=== PATIENT | female | born 1955 | race Caucasian/White ===

== ENCOUNTER 2017-05-12 09:14 | Emergency (ER) | payer BC ==
[2017-05-12 11:36] VITALS: BP 138/79
--- NOTE | 2017-05-12 12:37 | UC ---
Jen Wisdom Edward, scribed for Elizabeth Velasco DO on 05/12/17 at 1004 . Skin Complaint HPI - HPI Summary HPI Summary: 61 y/o female presents to [facility] c/o rash spreading over her neck and face. The rash started two nights ago after work and has since spread over the L side of her face over her eyebrow and up the L side of her head. The rash is severely pruritic, which is slightly alleviated by cortisol and benadryl. Associated sx: L ear feels full and is slightly pruritic, chronic intermittent ear drainage, joint pain in the right thumb, chronic joint pain. Denies dizziness, confusion, swelling of the lip, N/V, ABD pain, CP, dysuria, VILLARREAL, and SOB. PMHx Type II DM, HLD and arthritis. SHx hysterectomy, gall bladder removal, appy, and retinal detachment repair. FHx mother AFIB, possible DM on grandfather's side. Non- smoker. - History of Current Complaint Chief Complaint: UCSkin Time Seen by Provider: 05/12/17 09:59 Stated Complaint: RASH Hx Obtained From: Patient Hx Last Menstrual Period: menapause Onset/Duration: Gradual Onset, Lasting Days - Started two nights ago, Still Present, Worse Since - today rash approaches the left eye Timing: Constant Onset Severity: Mild Current Severity: Moderate Location: Face - L, Other - L side of neck Character: Pruritus, Redness, Raised Aggravating: Humidity Alleviating: OTC Meds, OTC Creams/Salves Associated Signs & Symptoms: Positive: Negative - No dizziness, confusion, swelling of the lip, N/V, ABD pain, CP, dysuria, VILLARREAL, and SOB, Rash - Red over L side of face and neck; pruritic Related History: Possible Reaction to: Environmental Exposure - Allergy/Home Medications Allergies/Adverse Reactions: Allergies Allergy/AdvReac Type Severity Reaction Status Date / Time Tyropanoate [From Bilopaque] Allergy Severe Rash Verified 09/23/12 18:26 SODIUM PENTATHOL Allergy Severe GI Upset Uncoded 09/23/12 18:26 Review of Systems Constitutional: Negative Skin: Rash - Red rash over L side of face and neck; pruritic Eyes: Negative ENT: Other - L ear feels full and is slightly pruritic Respiratory: Negative Cardiovascular: Negative Gastrointestinal: Negative Genitourinary: Negative Motor: Negative Neurovascular: Negative Musculoskeletal: Arthralgia - Chronic joint pain. Joint pain in right thumb Neurological: Negative Psychological: Negative All Other Systems Reviewed And Are Negative: Yes PMH/Surg Hx/FS Hx/Imm Hx - Additional Past Medical History Additional PMH: Positive for arthritis. Negative for Cardiac Disease, HTN, COPD, thyroid disease , asthma, ulcers Previously Healthy: No Endocrine History: Diabetes - Type 2 Other Endocrine History: HLD - Surgical History Surgical History: Yes Surgery Procedure, Year, and Place: 1983 - DETACHED RETINA RIGHT EYE. 1985 - LUMP REMOVED LEFT GROIN. 1987 - COMPLETE HYSTERECTOMY. 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 2013 gall bladder - Family History Known Family History: Positive: Diabetes - Possible DM on grandfather's side Negative: Cardiac Disease, Hypertension, Other - joint laxity - Social History Occupation: Employed Full-time Lives: With Family Alcohol Use: Rare Substance Use Type: None Smoking Status (MU): Never Smoked Tobacco - Immunization History Most Recent Influenza Vaccination: not utd Most Recent Tetanus Shot: 11/2011 Most Recent Pneumonia Vaccination: none Physical Exam Triage Information Reviewed: Yes Appearance: Well-Appearing, No Pain Distress, Well-Nourished Vital Signs: Initial Vital Signs Temp 97.6 F 05/12/17 09:16 Pulse 87 05/12/17 09:16 Resp 17 05/12/17 09:16 BP 149/84 05/12/17 09:16 Pulse Ox 100 05/12/17 09:16 Vital Signs Reviewed: Yes Eyes: Positive: Conjunctiva Clear. Negative: Discharge ENT: Positive: Hearing grossly normal. Negative: Muffled/hoarse voice Neck exam: Normal Neck: Positive: Supple Respiratory: Positive: Lungs clear, Normal breath sounds, No respiratory distress, No accessory muscle use Cardiovascular: Positive: RRR, No Murmur Musculoskeletal Exam: Normal Neurological: Positive: Alert, Muscle Tone Normal Psychological Exam: Normal Psychological: Positive: Age Appropriate Behavior Skin: Positive: rashes - Pruritic raised erythematous macular bilateral rash with a streaking pattern on the face. Course/Dx - Course Course Of Treatment: High BP noted. - Differential Diagnoses - Skin Complaint Differential Diagnoses: Allergic Reaction, Cellulitis, Contact Dermatitis, Poison Jarrod, Poison [place] - Diagnoses Provider Diagnoses: poison jarrod Discharge - Discharge Plan Condition: Stable Disposition: HOME Prescriptions: predniSONE TAB* [Deltasone TAB*] 40 mg PO DAILY #10 tab Patient Education Materials: Poison Jarrod (ED), Cold Compress or Soak (ED) Referrals: Christopher Melgar MD [Primary Care Provider] - 5 Days Additional Instructions: PLEASE CHECK WITH YOUR PCP REGARDING HIGH BLOOD PRESSURE. CORTICOSTEROID MEDICATION: You have been given a medicine of the cortisone class. This medication is used to control inflammation or allergy. It is usually only given for a short period of time, until the acute process subsides. There are usually no side effects from short-term use of cortisone-like medications. Some persons feel an increased sense of well-being and are not sleepy at bedtime. Long-term use of cortisone medications is best avoided, unless required for a severe condition. If your condition does not remit, or relapses after the course of corticosteroid medication, you should consult your physician. Contact the physician if you develop lightheadedness, black or tarry stools , swelling of the legs, or significant rapid change in weight. BE AWARE, THIS MED WILL INCREASE YOUR BLOOD SUGAR TEMPORARILY. SO, WE WILL TRY TO TREAT THIS WITH A 5 DAY COURSE ONLY. UNFORTUNATELY, SOMETIMES, POISON JARROD RASHES WILL REBOUND. IF SO, YOU MAY REQUIRE A LONGER COURSE WITH A TAPER. PLEASE BE SEEN BY YOU PCP IN 5-7 DAYS TO SEE IF THAT WILL BE NECESSARY. The documentation as recorded by the Jen hough Edward accurately reflects the service I personally performed and the decisions made by me, Elizabeth Velasco DO.
== END 2017-05-12 11:36 | disposition home or self-care (01) ==
LOC: UCEAST 09:14
DX: L23.7 Allergic contact dermatitis due to plants, except food (principal); T63.791A Toxic effect of contact with other venomous plant, accidental (unintentional), initial encounter; Y92.9 Unspecified place or not applicable
CPT/HCPCS: 99212; G0463

== ENCOUNTER 2019-12-30 17:16 | Emergency (ER) | payer BC ==
--- NOTE | 2019-12-30 19:52 | UC ---
Throat Pain/Nasal Kyler HPI - HPI Summary HPI Summary: 64-year-old female presents with 2 unrelated complaints. Her primary complaint is three-day history of sore throat, swollen lymph nodes, mild left maxillary sinus pressure, and left ear pain. States she thought she saw a "blister" on her left tonsil. Denies fever, chills, dysphagia, cough, chest pain, shortness of breath, abdominal pain, nausea, or vomiting. Patient's secondary complaint is for a "lump" to her left wrist that has been present for approximately a week and a half. States is mildly tender and notes she has some pain when she attempts to lift anything with that hand. Denies injury, decreased range of motion, erythema, ecchymosis, numbness, or tingling. - History of Current Complaint Chief Complaint: UCRespiratory Stated Complaint: THROAT/EAR PAIN & LEFT WRIST PAIN Hx Obtained From: Patient Hx Last Menstrual Period: menapause Pain Intensity: 7 - Allergies/Home Medications Allergies/Adverse Reactions: Allergies Allergy/AdvReac Type Severity Reaction Status Date / Time MS Tyropanoate Allergy Severe Rash Verified 12/30/19 17:40 [From Bilopaque] SODIUM PENTATHOL Allergy Severe GI Upset Uncoded 09/23/12 18:26 Home Medications: Home Medications Calcium Carbonate [Calcium 600] 600 mg PO DAILY 09/23/12 [History Confirmed ] Ibuprofen TAB* [Advil TAB*] 400 mg PO Q6HR 09/23/12 [History Confirmed 12/30/19] Lisinopril TAB* [Prinivil TAB 5 MG*] 5 mg PO DAILY 09/23/12 [History Confirmed 12/30/19] Omeprazole CAP (NF) [Prilosec CAP* 20 MG] 20 mg PO DAILY 09/23/12 [History Confirmed 12/30/19] metFORMIN* [Glucophage 500 MG TAB *] 1,000 mg PO BID 09/23/12 [History Confirmed 12/30/19] zzInsulin GLARGINE(*) [Lantus(*)] 40 units SUBCUT BID 09/23/12 [History Confirmed 12/30/19] Atorvastatin* [Lipitor*] 40 mg PO 1700 12/23/14 [History Confirmed 12/30/19] Biotin 1,000 mcg PO DAILY 12/23/14 [History Confirmed 12/30/19] Cetirizine* [ZyrTEC 10 MG TAB*] 10 mg PO DAILY 12/30/19 [History Confirmed 12/30] Dulaglutide (NF) [Trulicity (NF)] 0.5 ml INJ WEEKLY 12/30/19 [History Confirmed 12/30/19] Insulin LISPRO* [HumaLOG 100 units/ml 3 ml VIAL *] 1 unit INJ TID 12/30/19 [ History Confirmed 12/30/19] Mecobalamin [B12 Active] 1,000 mcg PO DAILY 12/30/19 [History Confirmed 12/30/19 ] PMH/Surg Hx/FS Hx/Imm Hx Endocrine History: Diabetes, Dyslipidemia Cardiovascular History: Hypertension GI/ History: Gastroesophageal Reflux - Surgical History Surgical History: Yes Surgery Procedure, Year, and Place: 1983 - DETACHED RETINA RIGHT EYE. 1985 - LUMP REMOVED LEFT GROIN. 1987 - COMPLETE HYSTERECTOMY. 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 2013 gall bladder - Family History Known Family History: Positive: Diabetes - Possible DM on grandfather's side Negative: Cardiac Disease, Hypertension - Social History Occupation: Employed Full-time Lives: Alone Alcohol Use: Rare Substance Use Type: None Smoking Status (MU): Never Smoked Tobacco - Immunization History Most Recent Influenza Vaccination: not utd Most Recent Tetanus Shot: 11/2011 Most Recent Pneumonia Vaccination: none Review of Systems All Other Systems Reviewed And Are Negative: Yes Constitutional: Negative: Fever, Chills Skin: Negative: Rash Eyes: Negative: Drainage, Eye Redness ENT: Positive: Sore Throat, Ear Ache, Sinus Congestion. Negative: Nasal Discharge, Sinus Pain/Tenderness Respiratory: Negative: Shortness Of Breath, Cough Cardiovascular: Negative: Palpitations, Chest Pain Gastrointestinal: Negative: Abdominal Pain, Vomiting, Diarrhea, Nausea Genitourinary: Positive: Negative Motor: Negative: Weakness Neurovascular: Negative: Decreased Sensation Musculoskeletal: Positive: Other: - See HPI. Negative: Decreased ROM Neurological/Mental Status: Positive: Negative Is Patient Immunocompromised?: No Physical Exam - Summary Physical Exam Summary: GENERAL APPEARANCE: Well developed, well nourished, alert and cooperative, and appears to be in no acute distress. EYES: Conjunctiva clear. No drainage. EARS: External auditory canals and tympanic membranes clear, hearing grossly intact. NOSE: Mild nasal congestion. No nasal discharge. THROAT: Pharyngeal erythema with 1+ tonsils without exudate. Uvula midline. NECK: Neck supple, non-tender. Mild left anterior cervical lymphadenopathy. CARDIAC: Normal S1 and S2. No S3, S4 or murmurs. Rhythm is regular. There is no peripheral edema, cyanosis or pallor. Extremities are warm and well perfused. Capillary refill is less than 2 seconds. Peripheral pulses intact. LUNGS: Clear to auscultation without rales, rhonchi, wheezing or diminished breath sounds. ABDOMEN: Positive bowel sounds. Soft, nondistended, nontender. No guarding or rebound. No masses or hepatosplenomegally. MUSKULOSKELETAL: ROM intact to all extremities. No joint erythema or tenderness. Normal muscular development. Normal gait. EXTREMITIES: Firm, smooth, rounded, and mildly tender cystic lesion to the left ulnar volar wrist without erythema or ecchymosis. Full ROM. Circulation and sensation intact. SKIN: Skin normal color, texture and turgor with no lesions or eruptions. Triage Information Reviewed: Yes Vital Signs: Initial Vital Signs Temp 98.7 F 12/30/19 17:32 Pulse 73 12/30/19 17:32 Resp 16 12/30/19 17:32 BP 150/65 12/30/19 17:32 Pulse Ox 99 12/30/19 17:32 Vital Signs Reviewed: Yes Throat Pain/Nasal Course/Dx - Course Course Of Treatment: 64-year-old female presents with 2 unrelated complaints. Her primary complaint is three-day history of sore throat, swollen lymph nodes, mild left maxillary sinus pressure, and left ear pain. States she thought she saw a "blister" on her left tonsil. Denies fever, chills, dysphagia, cough, chest pain, shortness of breath, abdominal pain, nausea, or vomiting. Patient's secondary complaint is for a "lump" to her left wrist that has been present for approximately a week and a half. States is mildly tender and notes she has some pain when she attempts to lift anything with that hand. Denies injury, decreased range of motion, erythema, ecchymosis, numbness, or tingling. Afebrile. Hypertensive otherwise vital signs stable. Patient had normal TMs, mild nasal congestion, pharyngeal erythema with 1+ tonsils without exudate, mild left anterior cervical lymphadenopathy, clear bilateral breath sounds, a firm, smooth, rounded , and mildly tender cystic lesion to the left ulnar volar wrist without erythema or ecchymosis consistent, full ROM with circulation and sensation intact, and otherwise unremarkable exam. Rapid strep test was negative. Reviewed results with the patient. Recommending symptomatic treatment for a viral upper respiratory infection. She is to follow-up with her primary care provider in 5-7 days if symptoms are not improving. We discussed that the cystic lesion on her wrist is consistent with a ganglion cyst and recommending conservative treatment at this time. She is to follow-up with orthopedic surgery in 7 days if symptoms persist. Anticipatory guidance and warning symptoms were reviewed with the patient. Verbalizes understanding and agrees with plan of care. - Differential Dx/Diagnosis Differential Diagnosis/HQI/PQRI: Peritonsillar Abscess, Pharyngitis, Sinusitis, Tonsillitis, URI, Other - ganglion cyst, abscess Provider Diagnosis: Viral URI, Ganglion cyst of volar aspect of left wrist Discharge ED - Sign-Out/Discharge Documenting (check all that apply): Patient Departure All imaging exams completed and their final reports reviewed: No Studies - Discharge Plan Condition: Stable Disposition: HOME Patient Education Materials: Ganglion Cysts (ED), Upper Respiratory Infection ( ED) Referrals: Christopher Melgar MD [Primary Care Provider] - 5 Days Anamika Beard MD [Medical Doctor] - 7 Days (Call for appointment.) Additional Instructions: The rapid strep test was performed in the clinic today was negative. Your history and exam are consistent with a viral upper respiratory infection. Viral infections do not respond to antibiotics and are limited to the treatment of symptoms. Viral infections typically run their course in 7-10 days. Drink plenty of fluids to avoid dehydration especially if you are running any fever. Use a saline rinse kit such as Neti Pot or NeilMed at least twice a day to help thin secretions and promote drainage of the sinuses. Use over the counter fluticasone (Flonase) nasal spray 2 sprays each nostril once daily. Take over the counter acetaminophen (Tylenol) or ibuprofen (Advil, Motrin) according to directions as needed for pain or fever. Use salt water gargles several times a day if you have a sore throat. You may also use Chloraseptic spray or Cepacol lonzenges according to directions which contain a numbing medication and can provide some temporary relief from your sore throat. Follow up with your primary care provider in 5-7 days if symptoms persist. The lump on your wrist is consistent with a ganglion cyst. Rest the wrist as much as possible. Take acetaminophen (Tylenol) or ibuprofen (Advil, Motrin) according to directions as needed for pain. Follow up with orthopedic surgery in 7 days if symptoms do not improve. Seek immediate medical attention in the emergency room if you have fever greater than 100.5 F despite taking acetaminophen or ibuprofen, have chest pain , difficulty breathing, are unable to swallow, or have any worsening of symptoms. - Billing Disposition and Condition Condition: STABLE Disposition: Home
[2019-12-30 20:23] VITALS: BP 139/82
== END 2019-12-30 20:26 | disposition home or self-care (01) ==
LOC: UCEAST 17:16
DX: J06.9 Acute upper respiratory infection, unspecified (principal); M67.432 Ganglion, left wrist; E11.9 Type 2 diabetes mellitus without complications; I10 Essential (primary) hypertension; K21.9 Gastro-esophageal reflux disease without esophagitis; E78.5 Hyperlipidemia, unspecified; Z91.041 Radiographic dye allergy status; Z91.09 Other allergy status, other than to drugs and biological substances; Z79.4 Long term (current) use of insulin; Z79.899 Other long term (current) drug therapy
CPT/HCPCS: 87651; 99212; G0463